=== PATIENT | male | born 1960 | race Caucasian/White ===

== ENCOUNTER → 2018-12-18 | Outpatient (CLI) | payer BC ==
--- NOTE | 2018-12-18 12:22 | Diagnostic Imaging Report ---
PROCEDURE: US carotid duplex, bilateral. TECHNIQUE: Multiple real-time grayscale images were obtained over the carotid arteries in various projections, bilaterally. Additional spectral analysis and color Doppler duplex images were also obtained. INDICATION: Syncope, prediabetes GILL scale images show mild atherosclerotic plaque at both carotid bifurcations. There is no alteration of waveforms or velocities. Both vertebral arteries are patent with antegrade flow. IMPRESSION: Mild atherosclerotic changes at the carotid bifurcations. There is no hemodynamically significant stenosis. Parameters based on the consensus panel Gill-Scale and Doppler ultrasound criteria published January 2003, Radiology, Volume 229. DOPPLER (peak systolic velocity M/S Right Left CCA .79 .96 ICA Proximal .74 .92 ICA Mid .83 .92 ICA Distal .74 .70 RATIO 1.1 1.0 ECA 1.20 1.26 VERT .33 .32 Dictated by: Dictated on workstation # [id number]
== END ==
LOC: CARD 09:57
PROVIDERS: ATTEND Family Medicine
DX: I65.23 Occlusion and stenosis of bilateral carotid arteries (principal); R73.03 Prediabetes
CPT/HCPCS: 93306; 93880